=== PATIENT | male | born 1960 | race Caucasian/White ===

== ENCOUNTER 2016-09-19 08:15 | Emergency (ER) | payer OTHER ==
[~2016-09-19] VITALS: Wt 88.5 kg
[2016-09-19] MEDS ORDERED: SOD CHLORIDE 0.9% 1,000 ML IV STA ×2 (08:38→10:03)
[2016-09-19] MEDS ORDERED: morphine 4 MG/ML VIAL IV STA (08:38)
[2016-09-19] MEDS ORDERED: KETOROLAC 30 MG INJ IV STA (08:38)
[2016-09-19] MEDS ORDERED: ONDANSETRON 4 MG INJ IV STA ×3 (08:38→10:03)
[2016-09-19 09:00] LABS: BASOPHILS % 0.3 % (0.0-2.0); EOSINOPHILS # 0.1 10^3/ul (0.0-0.5); EOSINOPHILS % 0.8 % (0.0-7.0); HEMATOCRIT 48.9 % (42.0-52.0); HEMOGLOBIN 16.7 g/dl (14.0-18.0); LYMPHOCYTES # 1.5 10^3/ul (0.8-2.9); MEAN CORPUSCULAR HEMOGLOBIN 32.7 pg (29.0-33.0); MEAN CORPUSCULAR HGB CONC 34.2 g/dl (32.0-37.0); MEAN CORPUSCULAR VOLUME 95.7 fl (82.0-101.0); MEAN PLATELET VOLUME 9.7 fl (7.4-10.4); MONOCYTE # 0.6 10^3/ul (0.3-0.9); MONOCYTES % 4.8 % (0.0-11.0); NEUTROPHIL # 9.5 10^3/ul (1.6-7.5); NEUTROPHILS % 80.7 % (39.0-77.0); PLATELET COUNT 197 10^3/UL (140-415); RED BLOOD COUNT 5.11 10^6/ul (4.70-6.10); RED CELL DISTRIBUTION WIDTH 12.6 % (11.5-14.5); WHITE BLOOD COUNT 11.8 10^3/ul (4.8-10.8)
[2016-09-19] MEDS ORDERED: HYDROmorphONE 1 MG/ML SYG IV STA ×2 (09:09→10:03)
--- NOTE | 2016-09-19 09:14 | ERD ---
ER Documentation Chief Complaint Date/Time DATE: 09/19/16 TIME: 09:12 Chief Complaint RUQ ABD PAIN, RADIATES TO BACK HPI This is a 56-year-old male that presents to the emergency department complaining of a sudden onset of right upper quadrant pain that began yesterday at 5 PM roughly 15 hours prior to arrival. The patient indicates the pain is sharp shooting pain in the right upper quadrant that radiates to the tip of his right scapula. He stated there is no alleviating or exacerbating factors. He had a similar episode 25 years ago when he was diagnosed with cholelithiasis but indicates he changed his diet has not had any further biliary colic. He has had no fevers or shaking no chills. He states he has been undergoing a significant amount of stress over the past year but denies any chest pain or pressure that radiates to the neck arm back or jaw. He has had no shortness of breath at rest or exertion. He denies a headache. He denies any radiation of the pain to the lower right quadrant and no frequency urgency dysuria or gross hematuria. He has had no fevers or shaking or chills. He did not take any analgesic medication prior to arrival ROS All systems reviewed and are negative except as per history of present illness. Medications Home Meds Active Scripts Docusate Sodium* (Colace*) 100 Mg Capsule, 100 MG PO TID, #30 CAP Prov:ALISA GAMBOA 09/19/16 Hydrocodone/Acetaminophen ([place] 5-325 Tablet) 1 Each Tablet, 1 TAB PO Q6H Y for PAIN, #20 TAB Prov:ALISA GAMBOA 09/19/16 Allergies Allergies: Coded Allergies: No Known Allergy (Verified Allergy, Unknown, 12/12/07) PMhx/Soc Medical and Surgical Hx: pt denies Medical Hx, pt denies Surgical Hx Hx Alcohol Use: No Hx Substance Use: No Hx Tobacco Use: No Smoking Status: Current every day smoker Physical Exam Vitals Vital Signs Date Time Temp Pulse Resp B/P Pulse Ox O2 Delivery O2 Flow Rate FiO2 09/19/16 11:34 98.0 78 129/71 09/19/16 08:20 98.3 93 17 172/112 99 Physical Exam Constitutional:Well-developed. Well-nourished. She appear to be in a significant amount discomfort secondary to pain HEENT:Normocephalic. Atraumatic.Pupils were equal round reactive to light. Moist mucous membranes.No tonsillar exudates. Neck: No nuchal rigidity. No lymphadenopathy. No posterior cervical spine tenderness or step-offs. Respiratory: Not using accessory muscles of respiration.Lungs were clear to auscultation bilaterally. No rhonchi. No rales. No wheezing. Cardiovascular: Regular rate regular rhythm.No murmurs. No rubs were appreciated.S1, S2 normal. Distal pulses are palpable 2+ bilaterally. GI: Abdomen was soft. Tenderness in the right upper quadrant negative Willett sign. Non Distended. No pulsatile abdominal masses or bruits. No rebound. No guarding. Bowel sounds were present and normal. No tenderness in the right lower quadrant over McBurney's point. Psoas sign negative. Obturator sign negative. Muscle skeletal: Full range of motion of both the upper and lower extremities bilaterally.Normal muscle tone.No assymetrical calf tenderness or swelling. Skin: No petechia, no purpura. No lesions on the palms or the soles of the feet. No maculopapular rash. NEURO: Patient was alert, awake, orientated x3.No facial droop. Gait observed and normal with no ataxia.Speech had regular rate and rhythm. No focal neurological deficits. Result Diagram: 09/19/16 0842 09/19/16 0842 Results 24 hrs Laboratory Tests Test 09/19/16 08:42 White Blood Count 11.810^3/ul Red Blood Count 5.1110^6/ul Hemoglobin 16.7g/dl Hematocrit 48.9% Mean Corpuscular Volume 95.7fl Mean Corpuscular Hemoglobin 32.7pg Mean Corpuscular Hemoglobin Concent 34.2g/dl Red Cell Distribution Width 12.6% Platelet Count 16288^3/UL Mean Platelet Volume 9.7fl Neutrophils % 80.7% Lymphocytes % 13.0% Monocytes % 4.8% Eosinophils % 0.8% Basophils % 0.3% Nucleated Red Blood Cells % 0.0/100WBC Neutrophils # 9.510^3/ul Lymphocytes # 1.510^3/ul Monocytes # 0.610^3/ul Eosinophils # 0.110^3/ul Basophils # 0.010^3/ul Nucleated Red Blood Cells # 0.010^3/ul Sodium Level 142mmol/L Potassium Level 4.0mmol/L Chloride Level 103mmol/L Carbon Dioxide Level 24mmol/L Anion Gap 19 Blood Urea Nitrogen 9mg/dl Creatinine 0.84mg/dl Glucose Level 125mg/dl Calcium Level 9.0mg/dl Total Bilirubin 0.3mg/dl Direct Bilirubin 0.00mg/dl Indirect Bilirubin 0.3mg/dl Aspartate Amino Transf (AST/SGOT) 26IU/L Alanine Aminotransferase (ALT/SGPT) 42IU/L Alkaline Phosphatase 77IU/L Troponin I < 0.012ng/ml Total Protein 7.8g/dl Albumin 4.5g/dl Globulin 3.30g/dl Albumin/Globulin Ratio 1.36 Amylase Level 74U/L Lipase 49U/L Current Medications Medications (Trade) Dose Ordered Sig/Fabiola Route PRN Reason Start Time Stop Time Status Last Admin Dose Admin Sodium Chloride (NS) 1,000 ml @ 1,000 mls/hr Q1H STAT IV 09/19/16 08:38 09/19/16 09:37 DC 09/19/16 08:51 Morphine Sulfate (morphine) 4 mg ONCE STAT IV 09/19/16 08:38 09/19/16 08:40 DC 09/19/16 08:51 Ondansetron HCl (Zofran Inj) 4 mg ONCE STAT IV 09/19/16 08:38 09/19/16 08:40 DC 09/19/16 08:51 Ketorolac Tromethamine (Toradol) 30 mg ONCE STAT IV 09/19/16 08:38 09/19/16 08:40 DC 09/19/16 08:51 Hydromorphone HCl (Dilaudid) 1 mg ONCE STAT IV 09/19/16 09:09 09/19/16 09:10 DC 09/19/16 09:18 Ondansetron HCl 4 mg 4 mg ONCE STAT IV 09/19/16 09:09 09/19/16 09:10 DC 09/19/16 09:18 Sodium Chloride (NS) 1,000 ml @ 1,000 mls/hr Q1H STAT IV 09/19/16 10:03 09/19/16 11:02 DC 09/19/16 10:18 Hydromorphone HCl (Dilaudid) 1 mg ONCE STAT IV 09/19/16 10:03 09/19/16 10:12 DC 09/19/16 10:18 Ondansetron HCl (Zofran Inj) 4 mg ONCE STAT IV 09/19/16 10:03 09/19/16 10:12 DC 09/19/16 10:18 Procedures/MDM This patient presented to the emergency department with abdominal pain and was seen and evaluated by myself. My differential diagnosis included but was not limited to abdominal aortic aneurysm, appendicitis, pancreatitis, perforated peptic ulcer, perforated viscus, Boerhaaves syndrome or visceral pain such as diverticulitis, DKA, esophagitis, hepatitis or bowel obstruction. The patient was placed on a photographic process screen maker, continuous pulse oximetry, and IV access was established by nursing staff. The patient received intravenous morphine and Zofran with no improvement of his symptoms. Therefore he was given IV Dilaudid and Toradol. 12 Lead EKG tracing ordered and reviewed by myself showed: Normal sinus rhythm of 85 bpm and no arrhythmia. MI interval normal. QRS duration normal. No ST segment elevation. Q waves present in inferior lead III and aVF No ST segment depression. No changes consistent with acute ischemia. The patient had no electrolyte abnormalities with normal liver enzymes and AST. An ultrasound the gallbladder ordered reviewed by myself the radiologist indicated that the patient had cholelithiasis without evidence of cholecystitis and CBD was within normal limits. Observation Note: Time: 4 hours Family Hx: No Hypertension Evaluation: Multiple exams showed improving symptoms and no evidence of gallstone pancreatitis or cholecystitis. The patient was discharged home in fair condition. They were instructed to return to the emergency department at any time if there was any worsening of their condition. The patient stated they would follow up with their PCP in the next 24-48 hours to initiate a suitable medication regimen under the care of their PCP as well as to allow their PCP to monitor any drug reactions. The patient was discharged home with prescriptions after they gave informed consent to the new medication. They were also fully informed by myself on the adverse effects and adverse drug interactions in order to provide adequate safeguards to prevent possible adverse reactions to medications. Departure Diagnosis: Primary Impression: Cholelithiasis Cholelithiasis location: gallbladder Cholecystitis presence: without cholecystitis Biliary obstruction: without biliary obstruction Qualified Code : K80.20 - Calculus of gallbladder without cholecystitis without obstruction Condition: ALISA Root Sep 19, 2016 09:14
--- NOTE | 2016-09-19 09:16 | RADRPT ---
PROCEDURE: US Abdomen (right upper quadrant). CLINICAL INDICATION: Abdominal pain. TECHNIQUE: Multiple real-time longitudinal and transverse images of the right upper quadrant of th e abdomen were acquired utilizing a curved array transducer. Images were reviewed on a high-resoluti on PACS workstation. COMPARISON: None FINDINGS: The liver is prominent measuring 18.8 cm and demonstrates diffusely increase echogenicity without fo lucía mass or intrahepatic biliary dilatation. Gallbladder sludge and multiple non mobile stones are seen within the gallbladder measuring up to 1.9 cm. There is no pericholecystic fluid or gallbladde r wall thickening. No intra or extrahepatic biliary dilatation is seen. The common bile duct measu res 5.2 mm in maximal dimension. The pancreas is not well seen due to overlying bowel gas. No free fluid is identified. The right kidney measures 10.0 cm in length. There is normal echogenicity within the right kidney. There is no perinephric fluid collection. No hydronephrosis, mass, or calculus is seen. IMPRESSION: 1. Gallbladder stones and sludge without evidence of acute cholecystitis. 2. Hepatomegaly and increased hepatic echogenicity suggesting statosis. RPTAT: HH .French Rosario MD, MD Date Time Electronically viewed and signed by .French Rosario MD, on 09/19/2016 09:16 .A/
[2016-09-19 09:23] LABS: ALANINE AMINOTRANSFERASE 42 IU/L (13-69); ALBUMIN 4.5 g/dl (3.3-4.9); ALBUMIN/GLOBULIN RATIO 1.36; ALKALINE PHOSPHATASE 77 IU/L (42-121); ANION GAP 19 (8-16); ASPARTATE AMINO TRANSFERASE 26 IU/L (15-46); BILIRUBIN,INDIRECT 0.3 mg/dl (0-1.1); BILIRUBIN,TOTAL 0.3 mg/dl (0.2-1.3); BLOOD UREA NITROGEN 9 mg/dl (7-20); CARBON DIOXIDE 24 mmol/L (21-31); CHLORIDE 103 mmol/L (97-110); CREATININE 0.84 mg/dl (0.61-1.24); GLUCOSE 125 mg/dl (70-220); SODIUM 142 mmol/L (135-144); TOTAL PROTEIN 7.8 g/dl (6.1-8.1)
[2016-09-19 09:31] LABS: AMYLASE 74 U/L (11-123)
[2016-09-19 09:37] LABS: TROPONIN-I < 0.012 ng/ml (0.00-0.12)
[2016-09-19 11:34] VITALS: BP 129/71; PULSE 78; TEMP 98
[2016-09-19] MEDS ORDERED: HYDR-906 PO (11:39)
[2016-09-19] MEDS ORDERED: DOCU-144 PO (11:39)
== END 2016-09-19 11:51 | disposition home or self-care (01) ==
LOC: E/R 08:15
DX: K80.20 Calculus of gallbladder without cholecystitis without obstruction (principal); F17.210 Nicotine dependence, cigarettes, uncomplicated; R40.2142 Coma scale, eyes open, spontaneous, at arrival to emergency department; R40.2252 Coma scale, best verbal response, oriented, at arrival to emergency department; R40.2362 Coma scale, best motor response, obeys commands, at arrival to emergency department
CPT/HCPCS: 76705; 80053; 82150; 83690; 84484; 85025; 93005; 96374; 96375; 96376; J1170; J1885; J2270; J2405; J7030; Z7502